=== PATIENT | male | born 1965 | race Caucasian/White ===

== ENCOUNTER 2021-02-22 14:25 | Inpatient (IN) ==
[~2021-02-22 14:25] MED LIST: Acetaminophen 325 MG TABLET PO PRN; MOM Conc 10 ML UD.LIQ PO PRN; Mag Hydrox/Al Hydrox/Simeth 30 ML UDC PO PRN; Naloxone 0.4 MG/ML INJ IVP PRN; Ondansetron ODT 4 MG TAB.RAPDIS SL PRN
[2021-02-22] MEDS ORDERED: Perflutren Lipid Microsphere 1.3 ML in 0.9 % Sodium Chloride 8.7 ML IVP PRN (14:29)
[2021-02-22 16:21] LABS: Prothrombin Time 11.4 Seconds (9.4-12.1)
[2021-02-22 16:28] LABS: BUN/Creatinine Ratio 32 (6-26); Blood Urea Nitrogen 42 mg/dL (6-20); Calcium 9.1 mg/dL (8.6-10.3); Carbon Dioxide 27 mEq/L (23-29); Chloride 106 mEq/L (98-107); Glucose 83 mg/dL (70-105); Osmolality,Calculated 298 (280-300); Potassium 4.4 mEq/L (3.5-5.1); Sodium 139 mEq/L (136-145); eGFR For African Americans > 60 (> 60); eGFR For Non-African Americans 56 (> 60)
[2021-02-22 17:11] LABS: Basophils % 0.5 %; Eosinophils # 0.2 K/mcL (0.0-0.6); Eosinophils % 2.8 %; Hematocrit 40.3 % (37.5-50.1); Hemoglobin 13.6 g/dL (12.9-16.9); Immature Granulocytes % 0.4 % (0-4); Lymphocytes # 1.1 K/mcL (0.6-4.6); Mean Corpuscular HGB Conc 33.7 g/dL (31.6-35.5); Mean Corpuscular Hemoglobin 31.3 pg (28.0-33.3); Mean Corpuscular Volume 92.6 fL (83.0-100.0); Mean Platelet Volume 9.6 fL (9.4-12.4); Monocytes # 0.5 K/mcL (0.0-1.3); Neutrophils # 3.9 K/mcL (1.6-8.9); Platelet Count 211 K/mcL (140-400); Red Blood Count 4.35 M/mcL (4.19-5.50); Red Cell Distribution Width 12.2 % (11.5-14.5); Segmented Neutrophils % 68.3 %; White Blood Count 5.7 K/mcL (4.3-11.1)
[2021-02-22] MEDS: carvediloL 6.25 MG TABLET PO SCH (17:57)
[2021-02-22] MEDS: *HR* Heparin 5,000 UNIT/ML VIAL SQ SCH (17:58)
[2021-02-22] MEDS: Aspirin Enteric Coated 81 MG Tablet PO SCH (18:00)
[2021-02-22] MEDS ORDERED: Melatonin 3 MG TABLET PO PRN (21:00)
[2021-02-23] MEDS: *HR* Heparin 5,000 UNIT/ML VIAL SQ SCH (05:48)
[2021-02-23] MEDS ORDERED: 0.9 % Sodium Chloride 1,000 ML IVC SCH (06:00)
[2021-02-23] MEDS: Aspirin Enteric Coated 81 MG Tablet PO SCH (07:17)
[2021-02-23] MEDS: carvediloL 6.25 MG TABLET PO SCH (07:17)
[2021-02-23] MEDS ORDERED: Thyroid (Amour) 30 MG TABLET PO SCH (09:00)
[2021-02-23] MEDS ORDERED: allopurinoL 300 MG TABLET PO SCH (09:00)
[2021-02-23] MEDS ORDERED: Heparin 1,000 UNITS/500 mL 500 ML ONE (10:00)
[2021-02-23] MEDS ORDERED: ISOVUE-370 200 ML INFUS..BTL ONE ×2 (10:00→10:48)
[2021-02-23] MEDS ORDERED: Nitroglycerin 1,000 MCG/5 ML VIAL IV ONE ×3 (10:00→11:28)
[2021-02-23] MEDS ORDERED: 0.9 % Sodium Chloride 1,000 ML ONE ×2 (10:00→10:08)
[2021-02-23] MEDS ORDERED: *HR* Heparin 10,000 UNIT/10 ML VIAL ONE (10:00)
[2021-02-23] MEDS ORDERED: *HR* Midazolam HCl 2 MG/2 ML VIAL ONE (10:08)
[2021-02-23] MEDS ORDERED: *HR* FentaNYL (PF) 100 MCG/2 ML VIAL ONE (10:08)
[2021-02-23] MEDS ORDERED: Tirofiban 12.5 MG/250ML 12.5 MG/250 ML BAG ONE (10:52)
[2021-02-23] MEDS ORDERED: *HR* Atropine Sulfate 1 MG/10 ML SYRINGE ONE (10:52)
[2021-02-23] MEDS ORDERED: *HR* Ticagrelor 90 MG TABLET ONE (11:14)
[2021-02-23] MEDS ORDERED: Aspirin 81 MG TAB.CHEW ONE (11:31)
[2021-02-23] MEDS ORDERED: Tirofiban 12.5 MG/250ML 12.5 MG/250 ML BAG IVC SCH (12:15)
[2021-02-23 14:53] VITALS: O2SAT 100
[2021-02-23 16:43] VITALS: BP 149/77; PULSE 63; TEMP 97.9
[2021-02-23] MEDS ORDERED: *HR* Ticagrelor 90 MG TABLET PO SCH (21:00)
== END 2021-02-23 17:08 | disposition home or self-care (01) | DRG 247 ==
LOC: 3ANU → 2NNU 02-23 11:27
PROVIDERS: ADMIT Internal Medicine; ATTEND Internal Medicine